=== PATIENT | female | born 2000 | race Caucasian/White ===

== ENCOUNTER 2021-06-01 21:05 | Emergency (ER) | payer MEDICAID ==
[~2021-06-01] VITALS: Ht 157.5 cm; Wt 61.4 kg
[2021-06-01 21:14] VITALS: BP 120/78
[2021-06-01] MEDS ORDERED: LACT10SO86 PO (21:36)
[2021-06-01] MEDS ORDERED: DOCU-299 PO (21:36)
[2021-06-01] MEDS: SODIUM PHOSPHATE 118 ML ENEM RC ONE (21:45)
[2021-06-01 21:48] LABS: BASOPHILS # (AUTO) 0.1 K/uL (0.00-0.22); BASOPHILS % (AUTO) 0.9 % (0.0-2.0); EOSINOPHILS # (AUTO) 0.2 K/uL (0-0.4); EOSINOPHILS % (AUTO) 2.5 % (0.0-4.0); HEMATOCRIT 36.2 % (36-48); HEMOGLOBIN 12.1 g/dL (12.0-16.0); LYMPHOCYTES # (AUTO) 2.7 K/uL (2.5-16.5); LYMPHOCYTES % (AUTO) 40.4 % (20.5-51.1); MEAN CORPUSCULAR HEMOGLOBIN 29 pg (27-31); MEAN CORPUSCULAR HGB CONC 34 g/dL (33-37); MEAN CORPUSCULAR VOLUME 87.3 fL (80-94); MONOCYTES # (AUTO) 0.4 K/uL (0.8-1.0); MONOCYTES % (AUTO) 5.8 % (1.7-9.3); NEUTROPHILS # (AUTO) 3.4 K/uL (1.8-7.7); NEUTROPHILS % (AUTO) 50.4 % (42.2-75.2); PLATELET COUNT (AUTO) 247 K/uL (140-450); RED BLOOD CELL COUNT(AUTO) 4.15 MIL/uL (4.20-5.40); RED CELL DISTRIBUTION WIDTH 13.1 % (11.6-13.7); WHITE BLOOD COUNT (AUTO) 6.8 K/uL (4.8-10.8)
[2021-06-01 22:09] LABS: ALBUMIN 3.6 g/dL (3.4-5.0); ANION GAP 9.6 (8-16); CARBON DIOXIDE 30.2 mmol/L (21-32); CREATININE 0.7 mg/dL (0.6-1.3); MAGNESIUM 2.2 mg/dL (1.8-2.4); PHOSPHORUS 4.1 mg/dL (2.5-4.9); POTASSIUM 3.8 mmol/L (3.5-5.1); TOTAL BILIRUBIN 0.1 mg/dL (0.0-1.0)
[2021-06-01 22:36] VITALS: BP 120/78
== END 2021-06-01 22:35 | disposition home or self-care (01) ==
LOC: MED 21:05
DX: K59.00 Constipation, unspecified (principal); R53.1 Weakness; J45.909 Unspecified asthma, uncomplicated; Z90.49 Acquired absence of other specified parts of digestive tract; Z79.899 Other long term (current) drug therapy
CPT/HCPCS: 36415; 80053; 81002; 81025; 83690; 83735; 84100; 85025; 99283

== ENCOUNTER 2021-08-11 12:04 | Emergency (ER) | payer MEDICAID ==
[~2021-08-11] VITALS: Ht 157.5 cm; Wt 59.5 kg
[~2021-08-11 12:04] MED LIST: DOCU-299 PO; LACT10SO86 PO
[2021-08-11 12:10] VITALS: BP 115/79
--- NOTE | 2021-08-11 12:15 | NUR ---
21/F PRESENTS TO ED WITH C/O COUGH, WEAKNESS AND SUBJECTIVE FEVER X2 DAYS. PATIENT DENIES SOB, CP OR RECENT SICK CONTACTS, REPORTS TAKING MOTRIN AT 2AM TODAY.
[2021-08-11] MEDS ORDERED: AMOX1TAB8 PO (12:18)
--- NOTE | 2021-08-11 12:24 | NUR ---
Patient discharged with v/s stable. Written and verbal after care instructions ABOUT STREP THROAT given and explained. Patient alert, oriented and verbalized understanding of instructions. Ambulatory with steady gait. All questions addressed prior to discharge. ID band removed. Patient advised to follow up with PMD. Rx of AMOXICILLIN/POTASSIUM CLAV given. Patient educated on indication of medication including possible reaction and side effects. Opportunity to ask questions provided and answered.
== END 2021-08-11 12:24 | disposition home or self-care (01) ==
LOC: MED 12:04
DX: J02.0 Streptococcal pharyngitis (principal); J45.909 Unspecified asthma, uncomplicated; Z79.899 Other long term (current) drug therapy; Z79.2 Long term (current) use of antibiotics
CPT/HCPCS: 99283